=== PATIENT | male | born 1975 ===

== ENCOUNTER 2023-08-27 13:04 | Emergency (ER) | payer OTHER ==
[~2023-08-27] VITALS: Ht 185.4 cm; Wt 90.7 kg
[2023-08-27 13:17] VITALS: BP 146/92
== END 2023-08-27 14:21 | disposition home or self-care (01) ==
LOC: ER 13:04 → EDBD 13:04 → ER 14:21
DX: S61.203A Unspecified open wound of left middle finger without damage to nail, initial encounter (principal); W26.8XXA Contact with other sharp object(s), not elsewhere classified, initial encounter
CPT/HCPCS: 73140